=== PATIENT | male | born 1960 | race African-American/Black ===

== ENCOUNTER 2018-02-23 21:13 | Inpatient (IN) | payer OTHER ==
[~2018-02-23] VITALS: Ht 190.5 cm; Wt 113.4 kg
[~2018-02-23 21:13] MED LIST: ATOR20TA PO; BENA40TA66 PO
[2018-02-23 22:46] LABS: BASOPHILS % 0.4 % (0.0-2.0); EOSINOPHILS % 0.1 % (0.0-5.0); HEMATOCRIT. 40.5 % (42.0-52.0); HEMOGLOBIN. 13.5 g/dL (14.0-18.0); LYMPHOCYTES % 14.3 % (20.0-50.0); MEAN CORPUSCULAR HEMOGLOBIN 29.5 pg (28.0-32.0); MEAN CORPUSCULAR VOLUME 88.6 fL (80.0-94.0); MEAN PLATELET VOLUME 7.7 fl (7.4-10.4); MONOCYTES % 3.5 % (2.0-8.0); NEUTROPHILS % 81.7 % (40.0-76.0); PLATELET 297 x1000/uL (130-400); RED BLOOD CELL COUNT 4.57 mill/uL (4.7-6.1); RED CELL DISTRIBUTION WIDTH 15.3 % (11.6-14.6)
[2018-02-23 22:51] LABS: CHLORIDE 107 mEq/L (98-107)
[2018-02-23 22:52] LABS: PROTHROMBIN TIME 10.4 sec (9.4-11.6)
[2018-02-23 22:55] LABS: ETHANOL BLOOD 16 mg/dL
[2018-02-23] MEDS ORDERED: ASPIRIN 325MG TABLET PO ONE (23:30)
[2018-02-23] MEDS ORDERED: ENOXAPARIN 120MG/0.8ML SYR SUBCUT ONE (23:30)
[2018-02-24] VITALS (19 sets, daily range): BP systolic 112–167; BP diastolic 66–90
[2018-02-24] MEDS ORDERED: MORPHINE SULFATE 4 MG/ML CPJ (NOT FOR IM USE) IV PRN (03:15)
[2018-02-24] MEDS ORDERED: NITROGLYCERIN 0.4MG TABLET SL SL PRN (03:15)
[2018-02-24] MEDS ORDERED: PROT40 PO (03:22)
[2018-02-24] MEDS ORDERED: AMLO10TA80 PO (03:22)
[2018-02-24] MEDS ORDERED: PANTOPRAZOLE 40MG DR TABLET PO SCH (06:50)
[2018-02-24 07:17] LABS: HEMATOCRIT 40.2 % (42.0-52.0); HEMOGLOBIN 13.2 g/dL (14.0-18.0); MEAN CORPUSCULAR VOLUME 88.2 fL (80.0-94.0); PLATELET 289 x1000/uL (130-400); RED BLOOD CELL COUNT 4.56 mill/uL (4.7-6.1); RED CELL DISTRIBUTION WIDTH 15.4 % (11.6-14.6)
[2018-02-24 07:24] LABS: CHLORIDE 107 mEq/L (98-107)
[2018-02-24 07:33] LABS: CREATINE KINASE 371 IU/L (39-308)
[2018-02-24 07:36] LABS: CREATINE KINASE MB FRACTION 20.4 ng/mL (0.5-3.6)
[2018-02-24] MEDS: PANTOPRAZOLE SODIUM 40 MG/VIAL IV SCH (08:30)
[2018-02-24] MEDS: AMLODIPINE 10MG TABLET PO SCH (08:31)
[2018-02-24] MEDS ORDERED: ASPIRIN 325MG TABLET PO SCH (09:00)
[2018-02-24] MEDS ORDERED: IOHEXOL-300 100 ML BOTTLE ONE (09:17)
[2018-02-24] MEDS ORDERED: IODIXANOL 320MG/ML 100 ML BOTTLE IV ONE ×2 (09:17→10:15)
[2018-02-24] MEDS ORDERED: LIDOCAINE HCL/PF 1% 10 MG/ML 5ML VIAL ONE (09:18)
[2018-02-24] MEDS ORDERED: MIDAZOLAM HCL 2 MG/2 ML VIAL ONE ×2 (09:29→11:23)
[2018-02-24] MEDS ORDERED: FENTANYL CITRATE/PF 50MCG/ML 2ML VIAL ONE ×2 (09:30→11:51)
[2018-02-24] MEDS ORDERED: ABCIXIMAB 10 MG/5 ML VIAL IV ONE (10:45)
[2018-02-24] MEDS ORDERED: ABCIXIMAB 10 MG/5 ML VIAL IV SCH (10:45)
[2018-02-24] MEDS ORDERED: ATROPINE SULFATE 1MG/10ML SYR IV PRN (11:45)
[2018-02-24] MEDS ORDERED: ACETAMINOPHEN 325MG TABLET PO PRN (11:45)
[2018-02-24] MEDS ORDERED: ENOXAPARIN 120MG/0.8ML SYR SUBCUT SCH (12:00)
[2018-02-24] MEDS ORDERED: PNEUMOCOCCAL 23-VAL P-SAC VAC 0.5 ML IM ONE (12:00)
[2018-02-24] MEDS: CLOPIDOGREL 75MG TABLET PO SCH (13:06)
[2018-02-24 13:35] LABS: CREATINE KINASE MB FRACTION 18.1 ng/mL (0.5-3.6)
[2018-02-24] MEDS ORDERED: NICARDIPINE 100MCG/ML 10ML VIAL (CATH LAB) IV ONE (14:52)
[2018-02-24] MEDS ORDERED: HEPARIN SODIUM 1,000 UNIT/1ML VIAL IV ONE (14:52)
[2018-02-24] MEDS ORDERED: NITROGLYCERIN 50MCG/ML 10ML VIAL (CATH LAB) IV ONE (14:52)
[2018-02-24 16:07] LABS: *AMPHETAMINES SCREEN URINE NEGATIVE (NEGATIVE); *BARBITURATES SCREEN URINE NEGATIVE (NEGATIVE); *BENZODIAZEPINES SCREEN URINE PRESUMTIVE POSITIVE (NEGATIVE)
[2018-02-24 16:08] LABS: *COCAINE SCREEN URINE PRESUMTIVE POSITIVE (NEGATIVE); CANNABINOID URINE SCREEN NEGATIVE (NEGATIVE); METHADONE URINE SCREEN NEGATIVE (NEGATIVE); OPIATES URINE SCREEN NEGATIVE (NEGATIVE); PHENCYCLIDINE URINE SCREEN NEGATIVE (NEGATIVE)
[2018-02-24] MEDS ORDERED: LORAZEPAM 2MG/ML CPJ IV PRN (17:15)
[2018-02-24] MEDS ORDERED: ATORVASTATIN CALCIUM 20MG TABLET PO SCH (21:00)
[2018-02-24] MEDS: NICOTINE 14MG PATCH TD SCH (22:00)
[2018-02-24] MEDS: ATORVASTATIN CALCIUM 40MG TABLET PO SCH (22:12)
[2018-02-24] MEDS: METOPROLOL TARTRATE 50MG TABLET PO SCH (22:13)
[2018-02-24] MEDS: FOLIC ACID 1 MG, THIAMINE HCL 100 MG, MVI, ADULT NO.1 10 ML in DEXTROSE 5% WATER 1,000 ML IV NR ×4 (23:40)
[2018-02-25] VITALS (12 sets, daily range): BP systolic 100–125; BP diastolic 64–82
[2018-02-25 00:46] LABS: CREATINE KINASE MB FRACTION 7.1 ng/mL (0.5-3.6)
[2018-02-25 06:31] LABS: BASOPHILS % 0.2 % (0.0-2.0); EOSINOPHILS % 0.5 % (0.0-5.0); HEMATOCRIT. 37.9 % (42.0-52.0); HEMOGLOBIN. 12.5 g/dL (14.0-18.0); LYMPHOCYTES % 26.7 % (20.0-50.0); MEAN CORPUSCULAR HEMOGLOBIN 29.1 pg (28.0-32.0); NEUTROPHILS % 65.6 % (40.0-76.0); PLATELET 282 x1000/uL (130-400); RED BLOOD CELL COUNT 4.31 mill/uL (4.7-6.1); RED CELL DISTRIBUTION WIDTH 15.1 % (11.6-14.6)
[2018-02-25] MEDS: FOLIC ACID 1 MG, THIAMINE HCL 100 MG, MVI, ADULT NO.1 10 ML in DEXTROSE 5% WATER 1,000 ML IV NR ×4 (07:00)
[2018-02-25 07:56] LABS: CHLORIDE 108 mEq/L (98-107)
[2018-02-25] MEDS: PANTOPRAZOLE SODIUM 40 MG/VIAL IV SCH (09:06)
[2018-02-25] MEDS: ASPIRIN 81MG TABLET PO SCH (09:07)
[2018-02-25] MEDS: CLOPIDOGREL 75MG TABLET PO SCH (09:07)
[2018-02-25] MEDS: AMLODIPINE 10MG TABLET PO SCH (09:08)
[2018-02-25] MEDS: METOPROLOL TARTRATE 50MG TABLET PO SCH ×2 (09:08→22:04)
[2018-02-25] MEDS: NICOTINE 14MG PATCH TD SCH (09:15)
[2018-02-25] MEDS: ATORVASTATIN CALCIUM 40MG TABLET PO SCH (22:04)
[2018-02-26] VITALS (7 sets, daily range): BP systolic 94–111; BP diastolic 47–70
[2018-02-26 07:19] LABS: BASOPHILS % 0.2 % (0.0-2.0); EOSINOPHILS % 0.5 % (0.0-5.0); HEMATOCRIT. 38.2 % (42.0-52.0); HEMOGLOBIN. 12.7 g/dL (14.0-18.0); LYMPHOCYTES % 25.9 % (20.0-50.0); MEAN CORPUSCULAR HEMOGLOBIN 29.1 pg (28.0-32.0); MEAN CORPUSCULAR VOLUME 87.7 fL (80.0-94.0); MEAN PLATELET VOLUME 7.7 fl (7.4-10.4); MONOCYTES % 6.8 % (2.0-8.0); NEUTROPHILS % 66.6 % (40.0-76.0); PLATELET 282 x1000/uL (130-400); RED BLOOD CELL COUNT 4.35 mill/uL (4.7-6.1)
[2018-02-26 08:15] LABS: CHLORIDE 108 mEq/L (98-107)
[2018-02-26] MEDS ORDERED: FAMOTIDINE 20MG TABLET PO SCH (09:00)
[2018-02-26] MEDS ORDERED: AMLODIPINE 5MG TABLET PO SCH (09:00)
[2018-02-26] MEDS: ASPIRIN 81MG TABLET PO SCH (10:15)
[2018-02-26] MEDS: METOPROLOL TARTRATE 50MG TABLET PO SCH (10:15)
[2018-02-26] MEDS: NICOTINE 14MG PATCH TD SCH (10:16)
[2018-02-26] MEDS: CLOPIDOGREL 75MG TABLET PO SCH (10:16)
== END 2018-02-26 11:55 | disposition home or self-care (01) | DRG 190 ==
LOC: ER 22:21 → 3WST 23:58 → EDBEDREQ 02-24 → EDBEDREQTM 02-24 → EDBEDREQSVC 02-24 → ENRESERV 02-24 01:08
PROVIDERS: ADMIT Internal Medicine; ATTEND Internal Medicine
PROC: 4A023N7 Measurement of Cardiac Sampling and Pressure, Left Heart, Percutaneous Approach (ICD-10-PCS; principal; 2018-02-24)
PROC: B2111ZZ Fluoroscopy of Multiple Coronary Arteries using Low Osmolar Contrast (ICD-10-PCS; 2018-02-24)
PROC: B2151ZZ Fluoroscopy of Left Heart using Low Osmolar Contrast (ICD-10-PCS; 2018-02-24)
PROC: 02JA3ZZ Inspection of Heart, Percutaneous Approach (ICD-10-PCS; 2018-02-24)
DX: I21.4 Non-ST elevation (NSTEMI) myocardial infarction (principal); I65.21 Occlusion and stenosis of right carotid artery; I10 Essential (primary) hypertension; I25.10 Atherosclerotic heart disease of native coronary artery without angina pectoris; F10.20 Alcohol dependence, uncomplicated; F14.10 Cocaine abuse, uncomplicated; E78.00 Pure hypercholesterolemia, unspecified; E78.5 Hyperlipidemia, unspecified; F17.200 Nicotine dependence, unspecified, uncomplicated; K21.9 Gastro-esophageal reflux disease without esophagitis; I25.2 Old myocardial infarction; Z82.49 Family history of ischemic heart disease and other diseases of the circulatory system; Z88.6 Allergy status to analgesic agent
CPT/HCPCS: 36415; 71045; 80048; 80053; 80305; 82550; 82553; 83036; 83880; 84443; 84484; 85025; 85027; 85347; 85610; 90732; 93005; 93306; 93458; 96372; 99291; C1725; C1760; C1769; C1887; C1893; C9113; G0482; J0130; J1644; J1650; J2250; J3010; J3411; J3490; J7070; Q9967

== ENCOUNTER 2022-07-08 12:34 | Emergency (ER) | payer OTHER ==
[~2022-07-08] VITALS: Ht 190.5 cm; Wt 100.0 kg
[~2022-07-08 12:34] MED LIST changes: +AMLO10TA80 PO; -BENA40TA66 PO; +PROT40 PO
[2022-07-08 12:37] VITALS: BP 172/109
== END 2022-07-08 20:27 | disposition left against medical advice (07) ==
LOC: ER 12:34
DX: Z53.21 Procedure and treatment not carried out due to patient leaving prior to being seen by health care provider (principal)

== ENCOUNTER 2023-08-14 09:27 | Emergency (ER) | payer OTHER ==
[~2023-08-14] VITALS: Ht 188 cm; Wt 83.0 kg
[2023-08-14 09:36] VITALS: O2SAT 100
[2023-08-14] MEDS ORDERED: SODIUM CHLORIDE 0.9% 1000ML BAG (SEPSIS BOLUS) IV ONE (10:00)
[2023-08-14 10:25] LABS: BASOPHILS % 0.2 % (0.0-2.0); DIFFERENTIAL COMMENT 0; EOSINOPHILS % 0.3 % (0.0-5.0); HEMATOCRIT. 36.6 % (42.0-52.0); HEMOGLOBIN. 12.4 g/dL (14.0-18.0); LYMPHOCYTES % 14.9 % (20.0-50.0); MEAN CORPUSCULAR HGB CONC 33.8 g/dL (31.0-37.0); MEAN CORPUSCULAR VOLUME 109.3 fL (80.0-94.0); MEAN PLATELET VOLUME 9.8 fl (7.4-10.4); MONOCYTES % 2.5 % (2.0-8.0); NEUTROPHILS % 82.1 % (40.0-76.0); PLATELET 169 x1000/uL (130-400); RED BLOOD CELL COUNT 3.34 mill/uL (4.7-6.1); WHITE BLOOD COUNT 7.4 x1000/uL (4.5-11.0)
[2023-08-14 10:50] LABS: CHLORIDE 101 mEq/L (98-107); INDEX HEMOLYSI 1 (1-3); INDEX ICTERIC 2 (1-4); INDEX LIPEMIC 1 (1-3); POTASSIUM 3.3 mEq/L (3.5-5.1); SODIUM 138 mEq/L (136-145)
[2023-08-14 11:07] LABS: ALANINE AMINOTRANSFERASE 62 IU/L (13-61); ALBUMIN 3.8 g/dL (3.4-5.0); ASPARTATE AMINOTRANSFERASE 195 IU/L (15-37); BILIRUBIN TOTAL 2.6 mg/dL (0.1-1.0); CALCIUM 10.1 mg/dL (8.5-10.1); CARBON DIOXIDE 20 mEq/L (21-32); CREATININE 2.6 mg/dL (0.6-1.3); ETHANOL BLOOD < 10 mg/dL (<10); GLUCOSE 175 mg/dL (70-105); NT PRO B-TYPE NATRIURETIC PEP 629 pg/mL (5-125); PROTEIN TOTAL 7.8 g/dL (6.0-8.3); TROPONIN I HIGH SENSITIVITY 24 ng/L (<78); UREA NITROGEN BLOOD 27 mg/dL (7-21)
[2023-08-14 11:31] LABS: PHOSPHORUS 0.8 mg/dL (2.5-4.9)
[2023-08-14 11:32] LABS: LACTIC ACID 3.7 mmol/L (0.4-2.0)
[2023-08-14 11:47] LABS: PROTHROMBIN TIME 10.9 sec (9.6-11.0)
[2023-08-14] MEDS ORDERED: PIPERACILLIN/TAZOBACTAM 3.375GM/50ML PREMIX IV NR (12:00)
[2023-08-14] MEDS ORDERED: KCL 20MEQ/100ML PREMIX 100 ML IV ONE (12:15)
[2023-08-14] MEDS ORDERED: POTASSIUM-SODIUM PHOSPHATE POWDER PACKET PO ONE (12:15)
[2023-08-14] MEDS ORDERED: SODIUM CHLORIDE 0.9% 500 ML IV ONE (13:00)
[2023-08-14 18:00] VITALS: BP 133/97; PULSE 75; RESP 14; TEMP 98.3
== END 2023-08-14 18:10 | disposition short-term general hospital (02) ==
LOC: ER 09:27
DX: K85.90 Acute pancreatitis without necrosis or infection, unspecified (principal); K21.9 Gastro-esophageal reflux disease without esophagitis; E78.00 Pure hypercholesterolemia, unspecified; I10 Essential (primary) hypertension; R42 Dizziness and giddiness; Z98.890 Other specified postprocedural states
CPT/HCPCS: 80053; 80320; 83880; 83605; 83690; 83735; 84100; 85025; 85610; 87040; 84484; 36415; 84145; 71045; 70450; 74176; 76705; 93005; 96361; 96365; 96366; 96375; 99285; 87426; J2543; J3480; J7040; J7030; C9803; Z7610 ×2; G0480